=== PATIENT | female | born 1950 | race Caucasian/White ===

== ENCOUNTER 2023-12-27 12:01 | Emergency (ER) | payer MEDICARE, OTHER, SELFPAY ==
[2023-12-27 12:08] VITALS: BP 128/77
--- NOTE | 2023-12-27 12:55 | ED.GENMED ---
History of Present Illness
General
Chief Complaint: Skin Surface Trauma
Time Seen by Provider: 12/27/23 12:23
History of Present Illness
History of Present Illness:
73-year-old female presenting for concern of laceration to her left first toe. She reports that prior to arrival she was moving furniture and suffered a cut to the lateral aspect of the nailbed. Bleeding was not stopping which prompted her to come
to the hospital. Tetanus unknown. Denies any pain. She is not on any blood thinners. Denies numbness or tingling. Denies additional acute complaints or injuries.
Past History
Past History
ED Past Medical History: Asthma and Other (Cirrhosis, hep C Txed 2 yrs ago-off transplant list since tx, Followed at [facility]-Dr Zapata, C-diff,); Negative HTN, Hypercholesterolemia or NIDDM
ED Past Surgical History: None
Social History
Tobacco: Non-smoker
Alcohol: None
Personal:
Living: with family
Family History
Family History: Negative Diabetes, Hypertension or CAD
Phy Exam
Physical Exam
Physical Exam:
General: Well-appearing, no clinical signs of dehydration, nontoxic and in no acute distress
HEENT: protecting airway
Neck: appears supple
CV: Normal heart rate
Resp: No accessory muscle use, no increased work of breathing
Abd: No distention
Extremities: No deformities, no swelling, no erythema
Neuro: alert, no focal neurologic deficit
: deferred
Rectal: deferred
Psych: Normal affect
Skin: Small skin avulsion at the lateral aspect of the first toe around the nailbed. No compromise to the nailbed. Bleeding controlled.
Course
Orders/Labs/Results
Orders:
Orders
12/27/23 12:54
Tetanus/Diphth/Acelpertussis [Adacel] 0.5 ml IM .ONCE ONE
Vital Signs
Initial and Last Documented VS:
Initial Vital Signs
Temp Pulse BP Pulse Ox
98.2 F 96 128/77 96
12/27/23 12:08 12/27/23 12:08 12/27/23 12:08 12/27/23 12:08
Last Documented Vital Signs
Temp Pulse BP Pulse Ox
98.2 F 96 128/77 96
12/27/23 12:08 12/27/23 12:08 12/27/23 12:08 12/27/23 12:08
MDM/Problems Addressed
MDM/Problems Addressed:
73-year-old female presenting for a cut to her left first toe. Vital signs are normal.
On exam patient is well-appearing, no acute distress. Patient with small skin avulsion to the toe, however nailbed is intact. Bleeding is controlled. No signs of infection. No neurovascular compromise to the digit. No indication for laceration
repair. Wound was appropriately cleaned and dressed. Tetanus updated. Feel stable for discharge with continued outpatient supportive therapy
*Critical Care Note
Total Time (30-74mins, 75-104mins- exclusive of procedures): Not Applicable
ED Attending Note
-
Portions of this chart may have been created with voice recognition software.� Occasional wrong word or��sound alike� substitutions may have occurred due to the inherent limitations of voice recognition software.
Discharge Plan
Departure
Patient Disposition: Home (Routine Discharge)
Date of Disposition: 12/27/23
Time of Disposition: 12:54
Patient with high blood pressure during this ER visit?: No
Condition: Good
Discharge Problem:
Avulsion of skin of toe
Instructions: Taking care of cuts, scrapes, and puncture wounds
Prescriptions:
No Action
nadolol 20 MG tablet
20 mg PO DAILY
Activity Restrictions/Additional Instructions:
You were seen in the emergency department for a cut on your toe
You were found to have a skin avulsion, which was bandaged. Your tetanus was updated
Please follow-up closely with your primary care physician.
Return to the emergency department for any worsening of your symptoms, or any development of chest pain, difficulty breathing, abdominal pain with persistent vomiting and inability to tolerate food or liquid by mouth (concern for dehydration),
weakness, headache or confusion, fever greater than 100.4, or any additional symptoms that are concerning to you.
Thank you for choosing [facility].
Interventions
Interventions:
*Risk Screen - Suicide Last Done: 12/27/23 12:09
*General Assessment Last Done: 12/27/23 12:09
*Neglect/Abuse Screening Last Done: 12/27/23 12:09
ED- Fall Risk Assessment Last Done: 12/27/23 12:34
*Nursing Disposition Last Done: 12/27/23 13:04
ED-Skin Assessment Last Done: 12/27/23 12:34
Discharge Date and Time
Print Language: CHINESE
[2023-12-27] MEDS: ADACEL 0.5 ML IM (13:01)
== END 2023-12-27 13:04 | disposition home or self-care (01) ==
LOC: EMR 12:01
PROVIDERS: EMERGENCY PHYSICIAN Student in an Organized Health Care Education/Training Program; FAMILY PHYSICIAN Nurse Practitioner Primary Care
DX: S91.212A Laceration without foreign body of left great toe with damage to nail, initial encounter (principal); W22.8XXA Striking against or struck by other objects, initial encounter; Z23 Encounter for immunization
CPT/HCPCS: 99282; 90471; 90715

== ENCOUNTER 2024-07-20 14:42 | Emergency (ER) | payer SELFPAY ==
[2024-07-20 14:51] VITALS: BP 129/77
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
[2024-07-20] MEDS: LET TOPICAL ANESTHETIC GEL 3 ML TOPICAL (16:50)
== END 2024-07-20 19:21 | disposition home or self-care (01) ==
LOC: EMR 14:42
PROVIDERS: EMERGENCY PHYSICIAN Student in an Organized Health Care Education/Training Program; FAMILY PHYSICIAN Nurse Practitioner Primary Care
DX: S01.112A Laceration without foreign body of left eyelid and periocular area, initial encounter (principal); V49.40XA Driver injured in collision with unspecified motor vehicles in traffic accident, initial encounter; Y92.410 Unspecified street and highway as the place of occurrence of the external cause; K74.60 Unspecified cirrhosis of liver; J45.909 Unspecified asthma, uncomplicated; Z87.891 Personal history of nicotine dependence
CPT/HCPCS: 99284; 12011; 70450; 72125